=== PATIENT | female | born 1985 | race Caucasian/White ===

== ENCOUNTER 2023-01-19 20:39 | Emergency (ER) | payer OTHER ==
[~2023-01-19] VITALS: Ht 157.5 cm; Wt 79.4 kg
[~2023-01-19 20:39] MED LIST: CEFADROXIL500 MG PO; CORTISPORIN EAR10 M1 OT; FLOVENT 110MCG7.9 GM IH; GILTUSS TR TAB1 EACH PO; PROVENTIL3 ML/2.5 M IH
[2023-01-19] MEDS ORDERED: ZYRTEC10 M3 PO (20:58)
[2023-01-19] MEDS ORDERED: MONTELUKAST SOD10 MG PO (20:58)
== END 2023-01-19 22:16 | disposition home or self-care (01) ==
LOC: ER 20:39
DX: J06.9 Acute upper respiratory infection, unspecified (principal); Z20.822 Contact with and (suspected) exposure to COVID-19